=== PATIENT | female | born 1965 | race Caucasian/White ===

== ENCOUNTER 2024-02-02 16:47 | Emergency (ER) | payer OTHER ==
[~2024-02-02] VITALS: Ht 162.6 cm; Wt 83.9 kg
[2024-02-02] MEDS ORDERED: RX Prepack 2 Tabs Ondansetron ODT 4MG UD ONE (19:05)
[2024-02-02] MEDS ORDERED: RX Prepack 6 Tabs Oxycodone 5mg UD ONE (19:05)
[2024-02-02] MEDS ORDERED: Percocet 5-3251 EACH PO (19:08)
[2024-02-02] MEDS ORDERED: ONDA4 PO (19:08)
== END 2024-02-02 19:36 | disposition home or self-care (01) ==
LOC: ER 16:47
DX: S02.2XXA Fracture of nasal bones, initial encounter for closed fracture (principal); S06.0X0A Concussion without loss of consciousness, initial encounter; W20.8XXA Other cause of strike by thrown, projected or falling object, initial encounter; Z88.8 Allergy status to other drugs, medicaments and biological substances
CPT/HCPCS: 70486; 99283-25; A9270